=== PATIENT | female | born 1955 | race Caucasian/White ===

== ENCOUNTER 2018-04-10 12:52 | Outpatient (CLI) | payer MEDICARE ==
--- NOTE | 2018-04-10 16:51 | MMO ---
ANNUAL DIGITAL SCREENING MAMMOGRAM: 04/10/18 COMPARISON: Comparison made to previous exam from 12/30/15. The patient's mammogram is also evaluated using compu ter aided detection. Bilateral craniocaudal and oblique mediolateral digital screen mammograms obtained. Images demonstrat e fibroglandular tissue seen in both breasts. Benign appearing breast calcifications seen. No definit e evidence of masses or lesions seen. IMPRESSION: BIRADS 2: Benign Finding(s) Routine annual screening mammography (for women over age 40). POS: [facility]
== END 2018-04-10 12:53 | disposition home or self-care (01) ==
LOC: SCSMAMMO 12:52
PROVIDERS: ATTEND Family Medicine
DX: Z12.31 Encounter for screening mammogram for malignant neoplasm of breast (principal)
CPT/HCPCS: 77067

== ENCOUNTER 2019-01-01 09:26 | Outpatient (CLI) | payer MEDICARE ==
--- NOTE | 2019-01-01 09:45 | RAD ---
EXAM: Chest 2 views: HISTORY: Dyspnea COMPARISON: CT chest 12/22/2018 FINDINGS: There is a normal-sized cardiomediastinal silhouette. Mass is projecting over the right upper lobe. N o pneumothorax is seen. The bones are unremarkable. IMPRESSION: Right upper lobe pulmonary mass.
== END 2019-01-01 09:27 | disposition home or self-care (01) ==
LOC: RAD 09:26
PROVIDERS: ATTEND Internal Medicine
DX: R06.00 Dyspnea, unspecified (principal); R91.8 Other nonspecific abnormal finding of lung field
CPT/HCPCS: 71046

== ENCOUNTER 2019-01-08 09:26 | Outpatient (CLI) | payer MEDICARE ==
--- NOTE | 2019-01-08 14:47 | PET ---
PET CT: HISTORY: 63-year-old female with suspected lung cancer. Right upper lobe lung mass seen on the CT scan of 10/03. TECHNIQUE: PET scanning with CT attenuation correction was performed from the base of the brain through the prox imal thighs following the intravenous administration of 12.3 mCi F18-FDG in the left antecubital josé miguel a. COMPARISON: None. CORRELATION: CT chest of 12/22/18. FINDINGS: There is abnormally increased FDG localization in the right upper lobe lung mass noted on the CT scan with a SUV of 14.3. No sanna hypermetabolism is seen in the mediastinum, hilar regions, axilla, neck, abdomen, or pelvis. No hypermetabolic liver, adrenal, or skeletal lesions are seen. There is physiologic activity in the GI and tracts, and the visualized portions of the brain. The CT scan used for attenuation correction demonstrates no evidence of pleural or pericardial effusi ons or ascites. There is evidence of old granulomatous disease and colonic diverticulosis. IMPRESSION: Right upper lobe lung malignancy without evidence of metastatic disease. POS: [facility]
== END 2019-01-08 09:27 | disposition home or self-care (01) ==
LOC: PET 09:26
PROVIDERS: ATTEND Internal Medicine
DX: R91.8 Other nonspecific abnormal finding of lung field (principal); C34.11 Malignant neoplasm of upper lobe, right bronchus or lung
CPT/HCPCS: 78815; A9552

== ENCOUNTER 2019-01-13 12:08 | Outpatient (CLI) | payer MEDICARE ==
[2019-01-13 14:23] LABS: Anion Gap 11 mmol/L (10-20); BUN (Urea Nitrogen) 9 mg/dL (9.8-20.1); Calc. Creatinine Clearance 0 mL/min (70-130); Calcium 9.3 mg/dL (7.8-10.44); Carbon Dioxide 31 mmol/L (23-31); Chloride 100 mmol/L (98-107); Estimated GFR-MDRD 60; Glucose 99 mg/dL (80-115); Potassium 3.9 mmol/L (3.5-5.1); Sodium 138 mmol/L (136-145)
--- NOTE | 2019-01-13 16:37 | EKG ---
Test Reason : Blood Pressure : / mmHG Vent. Rate : 059 BPM Atrial Rate : 059 BPM P-R Int : 162 ms QRS Dur : 084 ms QT Int : 418 ms P-R-T Axes : 066 064 057 degrees QTc Int : 413 ms Sinus bradycardia RSR' or QR pattern in V1 suggests right ventricular conduction delay Otherwise normal ECG No previous ECGs available Confirmed by NAVID COPE ([id number]) on 01/13/2019 4:36:34 PM Referred By: YOSSI Confirmed By:NAVID COPE
== END 2019-01-13 12:09 | disposition home or self-care (01) ==
LOC: LABBT 12:08
PROVIDERS: ATTEND Internal Medicine
DX: R91.8 Other nonspecific abnormal finding of lung field (principal)
CPT/HCPCS: 80048; 93005; 93010

== ENCOUNTER 2019-01-19 08:58 | Day surgery (SDC) | payer MEDICARE ==
[2019-01-13 11:39] VITALS: BMI 32.3
[2019-01-19] MEDS ORDERED: Fentanyl 100 MCG/2 ML VIAL ONE (09:50)
[2019-01-19] MEDS ORDERED: Midazolam HCl 2 mg/2 ml Vial ONE (09:50)
[2019-01-19] MEDS ORDERED: Albuterol Sulfate 1.25 MG/3 ML NEB ONE (12:32)
[2019-01-19] MEDS ORDERED: PHENYLEPHRINE-NS 100 MCG/ML 10 ML SYRINGE ONE (15:47)
[2019-01-19] MEDS ORDERED: Rocuronium Bromide 10 MG/ML (10ML VIAL) ONE (15:47)
[2019-01-19] MEDS ORDERED: Dexamethasone 20 MG/5 ML VIAL ONE (15:47)
[2019-01-19] MEDS ORDERED: Lidocaine 1% PF 5 ML VIAL ONE (15:47)
[2019-01-19] MEDS ORDERED: PROPOFOL 200 MG/20 ML VIAL ONE (15:47)
[2019-01-19] MEDS ORDERED: Glycopyrrolate 0.2 MG/ML 5 ML SYRINGE ONE (15:47)
[2019-01-19] MEDS ORDERED: Ondansetron PF 4 MG/2 ML Vial ONE (15:47)
--- NOTE | 2019-01-20 08:01 | OP ---
DATE OF PROCEDURE: 01/19/2019 SERVICE: Pulmonary Medicine. PROCEDURES PERFORMED: 1. Endoscopic bronchial ultrasound. 2. Trans-needle bronchial aspiration of station R10. 3. Visual airway inspection. 4. Endobronchial brushing of the right upper lobe. 5. Bronchoalveolar lavage of the right upper lobe. 6. Transbronchial biopsy of the right upper lobe. PREPROCEDURE DIAGNOSES: 1. Right upper lobe mass. 2. Mediastinal lymphadenopathy, not hypermetabolic. POSTPROCEDURE DIAGNOSES: 1. Right upper lobe mass. 2. Mediastinal lymphadenopathy, not hypermetabolic. MEDICATIONS USED: For the list of medications, refer to Anesthesia documentation. PREANESTHESIA ASSESSMENT: An H and P had been performed. The patient's medications and allergies were reviewed. Informed consent was obtained after discussing the risks, benefits, and rationale for performing the procedure as well as alternative options. DESCRIPTION OF PROCEDURE: A time-out was performed, identifying the correct procedure and patient with name and date of . After induction with anesthesia, the endoscopic bronchial ultrasound Olympus bronchoscope was introduced through the endotracheal tube and into the tracheobronchial tree. A limited airway evaluation was performed. Before any biopsies were done, there was some dried blood coming from the anterior portion of the right upper lobe. The bronchoscope was withdrawn into the trachea and a sanna survey was performed. There was a small sub 5 mm R4 lymph node. There was a conglomerate of 2 lymph nodes at the R10 level. There was no significant hilar lymph nodes identified. Endoscopic bronchial ultrasound- guided transbronchial needle aspiration of R10 was completed. I made an attempt to get a sample out of the R4, but [address] the needle correctly. As such, this lymph node was abandoned. The bronchoscope was subsequently removed and switched over for a diagnostic fiberoptic bronchoscope. A tracheobronchial tree inspection was carried out with clear identification of the right upper lobe, right middle lobe, right lower lobe, left upper lobe, lingula, and left lower lobe. Anatomy was normal to the segmental level. Endobronchial brushings were obtained under fluoroscopic guidance. A BAL was performed and endobronchial biopsies were subsequently obtained once again under fluoroscopic guidance. Hemostasis was verified and the bronchoscope was removed from the patient. Postprocedure fluoroscopy did not demonstrate a pneumothorax. FINDINGS: 1. Secretions were minimal and thin. 2. No endobronchial disease was identified. 3. 1.5 cm collection of lymph nodes were present at the R10 level, R4 had a sub 5 mm lymph node. No hilar disease was identified. 4. Rapid on-site examination demonstrated sparse lymphocytes without obvious malignancy. A conical was also obtained. SPECIMENS OBTAINED: 1. Cytology on FNA of R10. 2. Pathology on FNA of R10, endobronchial brush, BAL, and transbronchial biopsies of RUL. COMPLICATIONS: None. ESTIMATED BLOOD LOSS: Less than 2 mL. FLUOROSCOPY TIME: 2 minutes. DISPOSITION: The patient will be discharged home with postprocedure instructions. She will return to clinic as previously directed. Job ID: [id number] MTDD
== END 2019-01-19 14:15 | disposition home or self-care (01) ==
LOC: SDC 08:58
PROVIDERS: ATTEND Internal Medicine
PROC: 0BDC8ZX Extraction of Right Upper Lung Lobe, Via Natural or Artificial Opening Endoscopic, Diagnostic (ICD-10-PCS; principal; 2019-01-19)
PROC: 0BDC8ZX Extraction of Right Upper Lung Lobe, Via Natural or Artificial Opening Endoscopic, Diagnostic (ICD-10-PCS; 2019-01-19)
PROC: 07D78ZX Extraction of Thorax Lymphatic, Via Natural or Artificial Opening Endoscopic, Diagnostic (ICD-10-PCS; 2019-01-19)
PROC: 0B9C8ZX Drainage of Right Upper Lung Lobe, Via Natural or Artificial Opening Endoscopic, Diagnostic (ICD-10-PCS; 2019-01-19)
DX: C34.11 Malignant neoplasm of upper lobe, right bronchus or lung (principal); R59.0 Localized enlarged lymph nodes; I10 Essential (primary) hypertension; E78.5 Hyperlipidemia, unspecified; E03.9 Hypothyroidism, unspecified; F17.200 Nicotine dependence, unspecified, uncomplicated; E66.9 Obesity, unspecified; Z68.32 Body mass index [BMI] 32.0-32.9, adult; Z79.84 Long term (current) use of oral hypoglycemic drugs; Z79.899 Other long term (current) drug therapy; Z88.8 Allergy status to other drugs, medicaments and biological substances
CPT/HCPCS: 76000; 88112; 88172; 88173; 88305; 88313; 88341; 88342; J1100; J2001; J2250; J2405; J2704; J3010

== ENCOUNTER 2019-01-28 08:21 | Outpatient (CLI) | payer MEDICARE | END 2019-01-28 08:22 | disposition home or self-care (01) | LOC: MRI 08:21 | PROVIDERS: ATTEND Internal Medicine | DX: C34.90 Malignant neoplasm of unspecified part of unspecified bronchus or lung (principal); R91.8 Other nonspecific abnormal finding of lung field | CPT/HCPCS: 70553; 94060; 94727; 94729 ==

== ENCOUNTER 2019-02-09 08:44 | Outpatient (CLI) | payer MEDICARE ==
[2019-02-09] MEDS ORDERED: Magnevist 469MG/ML 20 ML VIAL ONE (11:35)
--- NOTE | 2019-02-09 13:16 | MRI ---
MRI BRAIN WITH AND WITHOUT CONTRAST: DATE: 02/09/19 HISTORY: 63-year-old female with right upper lobe lung cancer. Rule out brain metastasis. TECHNIQUE: Multiple sequences obtained in axial, sagittal, and coronal planes; pre and post IV injection of gado linium-based contrast agent: 20 mL MultiHance. FINDINGS: The ventricles are normal in size and configuration. There is no major intraaxial signal abnormality , restricted diffusion, abnormal intraaxial enhancement, mass, midline shift or any other mass effect , recent intraaxial hemorrhage, or extraaxial fluid collection. There is a large right mastoid effusi on. IMPRESSION: 1. No brain metastasis. 2. Right mastoid effusion. 3. Normal brain. [email or web address][] POS: [facility]
== END 2019-02-09 08:45 | disposition home or self-care (01) ==
LOC: MRI 08:44
PROVIDERS: ATTEND Internal Medicine
DX: C34.90 Malignant neoplasm of unspecified part of unspecified bronchus or lung (principal); R91.1 Solitary pulmonary nodule; H74.8X1 Other specified disorders of right middle ear and mastoid
CPT/HCPCS: 70553; A9579